=== PATIENT | male | born 1930 | race Caucasian/White ===

== ENCOUNTER 2018-06-07 10:42 | Outpatient (CLI) | payer MEDICARE ==
[2018-06-07 17:50] LABS: ALBUMIN 3.7 g/dL (3.2-5.5); ALBUMIN/GLOBULIN RATIO 1.1 (1.0-2.2); ALKALINE PHOSPHATASE 57 IU/L (42-121); ALT ALANINE AMINOTRANSFERASE 19 IU/L (10-60); AST ASPARTATE AMINOTRANSFERASE 21 IU/L (10-42); BASOPHILS % (AUTO) 0.2 %; BILIRUBIN,TOTAL 0.8 mg/dL (0.2-1.0); BUN - BLOOD UREA NITROGEN 14 mg/dL (6-20); CALCIUM 8.8 mg/dL (8.5-10.3); CARBON DIOXIDE - CO2 29 mmol/L (21-32); CHLORIDE 104 mmol/L (101-111); CHOL/HDL RATIO 3.3 (<5.0); CHOLESTEROL 168 mg/dL; CREATININE 1.1 mg/dL (0.6-1.2); EOSINOPHILS # (AUTO) 0.2 10^3/uL (0.0-0.7); EOSINOPHILS % (AUTO) 2.6 %; GFR - MDRD 63 (>89); GLUCOSE 93 mg/dL (70-100); HDL CHOLESTEROL 51 mg/dL; HGB - HEMOGLOBIN 13.9 g/dL (14.0-18.0); LDL CHOLESTEROL,CALCULATED 93 mg/dL; LDL/HDL RATIO 1.8 (<3.6); LYMPHOCYTES # (AUTO) 2.5 10^3/uL (1.5-3.5); LYMPHOCYTES % (AUTO) 35.1 %; MEAN CORPUSCULAR HEMOGLOBIN 30.6 pg (27.0-31.0); MEAN CORPUSCULAR HGB CONC 32.9 g/dL (32.0-36.0); MEAN PLATELET VOLUME 7.9 fL (7.4-11.4); MONOCYTES # (AUTO) 0.7 10^3/uL (0.0-1.0); MONOCYTES % (AUTO) 9.8 %; NEUTROPHILS # (AUTO) 3.8 10^3/uL (1.5-6.6); NEUTROPHILS % (AUTO) 52.3 %; PLT - PLATELET COUNT 236 10^3/uL (130-450); RED BLOOD COUNT 4.55 10^6/uL (4.70-6.10); RED CELL DISTRIBUTION WIDTH 13.2 % (12.0-15.0); SODIUM 139 mmol/L (135-145); TOTAL PROTEIN 7.1 g/dL (6.7-8.2); VLDL CHOLESTEROL 24 mg/dL; WHITE BLOOD COUNT 7.2 x10^3/uL (4.8-10.8)
== END 2018-06-07 10:43 | disposition home or self-care (01) ==
LOC: LAB.F 10:42
PROVIDERS: ATTEND Internal Medicine
DX: G45.9 Transient cerebral ischemic attack, unspecified (principal)
CPT/HCPCS: 36415; 80053; 80061; 83721; 85025

== ENCOUNTER 2018-06-13 13:50 | Outpatient (CLI) | payer MEDICARE ==
--- NOTE | 2018-06-14 10:46 | Ultrasound Report ---
Reason: TRANSIENT ISCHEMIC ATTACH Procedure Date: 06/13/2018 Accession Number: [id number] / [id number] Procedure: US - Carotid Doppler Complete CPT Code: FULL RESULT: EXAM: BILATERAL CAROTID AND VERTEBRAL ARTERY DUPLEX DOPPLER ULTRASOUND: EXAM DATE: 06/13/2018 04:12 PM CLINICAL HISTORY: TRANSIENT ISCHEMIC ATTACK. COMPARISON: None. TECHNIQUE: Grayscale imaging, color Doppler, and duplex spectral Doppler were used to evaluate the carotid and vertebral arteries bilaterally. Static images were obtained. FINDINGS: Both carotid bulbs demonstrate minimal echogenic atherosclerotic disease, visually less than 25% of the lumen. No hemodynamically significant plaque is identified in the right or left common or internal carotid arteries. Normal antegrade flow is present in bilateral vertebral arteries. VELOCITIES (cm/sec): Right CCA Mid: PSV 55.1 cm/sec CCA Dist: PSV 51.5 cm/sec ICA Prox: PSV 38.3 cm/sec, EDV 8.7 cm/sec ICA Mid: PSV 45.5 cm/sec, EDV 10.8 cm/sec ICA Dist: PSV 58.8 cm/sec, EDV 0.2 cm/sec ECA: PSV 78.8 cm/sec Vert: PSV 34.3 cm/sec ICA/CCA: 1.14 Left CCA Mid: PSV 48.9 cm/sec CCA Dist: PSV 52.8 cm/sec ICA Prox: PSV 56.4 cm/sec, EDV 13.6 cm/sec ICA Mid: PSV 55.1 cm/sec, EDV 12.7 cm/sec ICA Dist: PSV 60.8 cm/sec, EDV 13.0 cm/sec ECA: PSV 62.7 cm/sec Vert: PSV 65.6 cm/sec ICA/CCA: 1.15 ICA diameter stenosis: Right: <50% by velocity and <70% by NASCET criteria. Left: <50% by velocity and <70% by NASCET criteria. IMPRESSION: 1. Minimal bilateral carotid artery plaquing by the polyps visually. 2. In the right carotid artery there are no elevated carotid artery velocities to suggest hemodynamically significant stenosis. 3. In the left carotid artery there are no elevated carotid artery velocities to suggest hemodynamically significant stenosis. 4. Normal antegrade flow is present in bilateral vertebral arteries. General Recommendations: Stenosis =50% ICA - Follow-up ultrasound 6-12 months Stenosis <50% ICA - High Risk Patient with plaque - Follow-up ultrasound 1-2 years Normal Study but High Risk Patient - Follow-up ultrasound 3-5 years Management recommendations and diagnostic criteria are based on current IAC endorsed standards in Carotid Artery Stenosis: Grayscale and Doppler Ultrasound Diagnosis. Validated velocity measurements with angiographic measurements and velocity criteria are extrapolated from diameter data as defined by the Society of Radiologists in Ultrasound Consensus Conference Radiology 2003; 229;340-346. RADIA
== END 2018-06-13 13:51 | disposition home or self-care (01) ==
LOC: DI 13:50
PROVIDERS: ATTEND Internal Medicine
DX: G45.9 Transient cerebral ischemic attack, unspecified (principal)
CPT/HCPCS: 93306; 93880

== ENCOUNTER 2019-01-05 13:40 | Outpatient (CLI) | payer MEDICARE ==
[2019-01-05 17:55] LABS: CREATININE 1.1 mg/dL (0.6-1.2)
== END 2019-01-05 13:41 | disposition home or self-care (01) ==
LOC: LAB.S 13:40
PROVIDERS: ATTEND Physician Assistant Medical
DX: Z01.812 Encounter for preprocedural laboratory examination (principal)
CPT/HCPCS: 36415; 82565

== ENCOUNTER 2019-01-06 10:51 | Outpatient (CLI) | payer MEDICARE ==
[2019-01-06] MEDS ORDERED: IOVERSOL 320 100 ML VIAL IVP ONE ×2 (11:05→11:24)
--- NOTE | 2019-01-06 15:31 | CT Report ---
Reason: LOCALIZED SWELLING,MASS AND LUMP,NECK Procedure Date: 01/06/2019 Accession Number: [id number] / [id number] Procedure: CT - SOFT TISSUE NECK W CPT Code: FULL RESULT: EXAM: CT SOFT TISSUE NECK WITH CONTRAST. EXAM DATE: 01/06/2019 11:22 AM. HISTORY: Large lump at base of skull. COMPARISONS: None. TECHNIQUE: Routine soft tissue neck CT protocol. Reconstructions: Coronal and sagittal. IV contrast: OPTI 320 80ML. In accordance with CT protocol optimization, one or more of the following dose reduction techniques were utilized for this exam: automated exposure control, adjustment of mA and/or KV based on patient size, or use of iterative reconstructive technique. FINDINGS: Centered just to the left of midline in the soft tissues of the posterior upper neck at the level of the posterior arch of C1 is a 2.7 x 2.1 x 2.9 cm transverse band to push by craniocaudal mass which is centered in the subcutaneous fat and is intimately associated with the overlying skin. There is no significant inflammatory change surrounding this mass. This mass does not contact the posterior paraspinal muscles. There appears to be a few flecks of mineralization/calcium within this mass. This mass has a somewhat swirled appearance with what appears to be some enhancement present. No lymphadenopathy is seen superior and inferior to the mass in the soft tissues of the posterior neck. No mass is present in either orbit. No enhancing mass is present in the brain parenchyma. No mass is present in either submandibular gland or in either parotid gland. No mass is present in the nasopharynx. Parapharyngeal fat is symmetric. No subglottic stenosis is present. The thyroid gland is not enlarged. No bulky or cystic/necrotic lymphadenopathy is seen in the neck along either internal jugular chain, in either posterior triangle, or in the submental region. No confluent infiltrate is seen in either upper lung. Peripheral septal thickening is seen in each upper lung. An element of pulmonary fibrosis is in the differential. There is ankylosis across upper cervical facet joints and there is fusion across upper cervical disk spaces but these changes seen from C2 through C5. No enhancing mass is seen in the visualized brain. No enhancing mass is identified in the brain parenchyma. IMPRESSION: 1. There is a well-circumscribed solid-appearing soft tissue mass in the left paramedian upper neck which might well demonstrate small areas of mineralization/calcification. This is intimately associated with the skin. One etiology to consider would be a large sebaceous cyst. A neoplastic etiology such as a mesenchymal tumor or lymphoma are also in the differential. 2. No lymphadenopathy is seen in the neck. 3. 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 RADIA
== END 2019-01-06 10:52 | disposition home or self-care (01) ==
LOC: DI 10:51
PROVIDERS: ATTEND Physician Assistant Medical
DX: Z01.812 Encounter for preprocedural laboratory examination (principal); R22.1 Localized swelling, mass and lump, neck; M43.22 Fusion of spine, cervical region
CPT/HCPCS: 70491; Q9967